=== PATIENT | male | born 1995 | race Caucasian/White ===

== ENCOUNTER → 2023-03-14 12:41 | Outpatient (CLI) | payer OTHER, SELFPAY ==
--- NOTE | ~2023-03-14 | MR_ITS ---
MRI of the brain Clinical History: Sudden vision loss Technique: Axial and sagittal T1-weighted images were acquired. These were followed by axial T2-weigh kateryna, diffusion weighted, gradient, and FLAIR images. Findings: There is no acute infarct, internal hemorrhage, or mass lesion. No abnormal signal seen in the brain parenchyma. Ventricles and subarachnoid spaces are unremarkable. Orbits are unremarkable. Paranasal sinuses and m astoid air cells are clear. Major intracranial flow voids are intact. Sagittal midline structures are intact. IMPRESSION: Unremarkable exam. Reviewed, dictated and finalized at location M. [employer] IMPRESSION: Unremarkable exam.
== END ==
PROVIDERS: PCP Otolaryngology; Visit Provider Otolaryngology
DX: H53.139 Sudden visual loss, unspecified eye (principal)
CPT/HCPCS: 70551